=== PATIENT | female | born 1980 ===

== ENCOUNTER 2017-08-27 13:30 | Emergency (ER) | payer OTHER ==
[2017-08-27] MEDS ORDERED: NS 1,000 ML IV ONE (13:54)
--- NOTE | 2017-08-27 13:56 | EDPHY ---
H & P Stated Complaint: presyncopal event/dizzyness Time Seen by Provider: 08/27/17 13:42 HPI/ROS: CHIEF COMPLAINT: Lightheadedness HISTORY OF PRESENT ILLNESS: 36-year-old female arrives via private vehicle stating that approximately an hour ago she was at work and felt sudden onset of dizziness, room spinning sensation, near syncopal. The symptoms have by enlarged resolved now. However if she stands up suddenly she notes that she will feel lightheaded. No reproducible dizziness or vertigo with movement of her head. No pain including no chest pain, no headache, no back pain, abdominal pain, no neck pain. No history of neck manipulation. No major or minor head or neck trauma. PRIMARY CARE PROVIDER: Gustavo REVIEW OF SYSTEMS: A ten point review of systems was performed and is negative with the exception of the items mentioned in the HPI PAST MEDICAL & SURGICAL HISTORY: No pertinent medical or surgical history SOCIAL HISTORY: Nonsmoker. No drug use. PHYSICAL EXAM (Prior to examination, patient consented to physical exam, hands were washed and my usual and customary physical exam procedures followed) 1) GENERAL: Well-developed, well-nourished, alert and oriented. Appears to be in no acute distress. 2) HEAD: Normocephalic, atraumatic 3) HEENT: Pupils equal, round, reactive to light bilaterally. Sclera anicteric. Nasopharynx, oropharynx, clear, no lesions. Ears bilaterally with normal tympanic membranes. 4) NECK: Full range of motion, no meningeal signs. 5) LUNGS: Clear auscultation bilaterally, no wheezes, no rhonchi, no retractions. 6) HEART: Regular rate and rhythm, no murmur, no heave, no gallop. 7) ABDOMEN: No guarding, no rebound, no focal tenderness, negative McBurney's, negative Schultz's, negative Rovsing's, negative peritoneal sign, 8) MUSCULOSKELETAL: Moving all extremities, no focal areas of tenderness, no obvious trauma. No peripheral edema or discoloration. 9) BACK: No CVA tenderness, no midline vertebral tenderness, no fluctuance, no step-off, no obvious trauma, no visual or palpable abnormality. 10) SKIN: No rash, no petechiae. 11) Psychiatric: Patient is oriented X 3, there is no agitation. 12) NEURO: Awake, alert, and oriented to person, place and time. Patient does feel slightly lightheaded when she stands. Answers questions appropriately. There were no obvious focal neurologic abnormalities. No cerebellar dysfunction. Cranial nerves 2 through to 12 intact. Normal steady gait. Upper and lower extremities bilaterally with strength 5 / 5, reflexes 2+. DIFFERENTIAL DIAGNOSIS: In no particular order including but not limited to benign positional vertigo, orthostatic hypotension, cardiac dysrhythmia, ectopic - Personal History LMP (Females 10-55): 22-28 Days Ago Current Tetanus/Diphtheria Vaccine: Yes - Medical/Surgical History Hx Asthma: No Hx Chronic Respiratory Disease: No Hx Diabetes: No Hx Cardiac Disease: No Hx Renal Disease: No Hx Cirrhosis: No Hx Alcoholism: No Hx HIV/AIDS: No Hx Splenectomy or Spleen Trauma: No Other PMH: denies - Social History Smoking Status: Never smoked Constitutional: Initial Vital Signs Temperature (C) 36.7 C 08/27/17 13:34 Heart Rate 82 08/27/17 13:34 Respiratory Rate 18 08/27/17 13:34 Blood Pressure 124/62 H 08/27/17 13:34 O2 Sat (%) 100 08/27/17 13:34 O2 Delivery Mode Room Air Allergies/Adverse Reactions: No Known Allergies Allergy (Unverified 08/27/17 13:34) Home Medications: Medication Instructions Recorded NK [No Known Home Meds] 08/27/17 Medical Decision Making ED Course/Re-evaluation: 2:50 p.m.: Recommended rectal examination as she was noted to be anemic. Rectal examination with female nurse Alexa Bautista at bedside at this time reveals brown stool on glove. 3:30 p.m.: Re-evaluation. She has received IV hydration in the ER. She was observed ambulating without assistance, has no complaints of pain or discomfort , no dizziness, no vertiginous symptoms. Her heart rate is in the 80s. Discussed the importance of follow-up regarding her microscopic anemia which may be secondary to iron deficiency. Recommended iron supplementation and close follow-up with [facility] provider. Care of patient under supervision of secondary supervising physician Dr Tsai with whom I discussed care . - Data Points Laboratory Results: Laboratory Results 08/27/17 14:20 08/27/17 14:20 Medications Given: Discontinued Medications Sodium Chloride (Ns) 1,000 mls @ 0 mls/hr IV ONCE ONE PRN Reason: Wide Open Stop: 08/27/17 13:55 Last Admin: 08/27/17 14:32 Dose: 1,000 mls Departure - Departure Disposition: Home, Routine, Self-Care Clinical Impression: Lightheaded Anemia Qualifiers: Anemia type: unspecified type Qualified Code(s): D64.9 - Anemia, unspecified Condition: Good Instructions: Anemia (ED) Additional Instructions: You are anemic. The specific origin of your low blood count is not completely clear, may be related to iron deficiency. I recommend you take an over-the- counter iron supplement. Recommend you follow up closely with [place] intake the copies of her laboratory studies with you. Return to the ER if you develop lightheadedness dizziness or any other symptoms that concern you. Referrals: [facility] ,. [Edm Groups for Call Sched] - 1-2 days without fail
--- NOTE | 2017-08-27 14:08 | CPEKG ---
Heart Rate: 111 RR Interval: 541 P-R Interval: 132 QRSD Interval: 92 QT Interval: 344 QTC Interval: 468 P [place]: 64 QRS [place]: 51 T Wave [place]: 1 EKG Severity - BORDERLINE ECG - EKG Impression: SINUS TACHYCARDIA EKG Impression: BORDERLINE T ABNORMALITIES, ANTERIOR LEADS Electronically Signed By: Eddie Albright 27-Aug-2017 21:25:23
[2017-08-27 15:37] VITALS: BP 129/76
[2017-08-27 16:08] LABS: PLATELET COUNT 357 10^3/uL (150-400)
== END 2017-08-27 16:00 | disposition home or self-care (01) ==
DX: R42 Dizziness and giddiness (principal); D64.9 Anemia, unspecified